=== PATIENT | male | born 1995 | race Two or more races ===

== ENCOUNTER 2023-09-19 11:23 | Emergency (ER) | payer OTHER ==
[~2023-09-19] VITALS: Ht 172.7 cm; Wt 91.0 kg
[2023-09-19 11:28] VITALS: BP 106/70; TEMP 98.3; O2SAT 100
[2023-09-19 11:29] VITALS: PULSE 74; RESP 16
[2023-09-19 13:33] LABS: HEMATOCRIT 50.8 % (42.0-52.0); HEMOGLOBIN 16.9 g/dL (14.0-18.0); MEAN CORPUSCULAR HEMOGLOBIN 28.2 pg (28.0-32.0); MEAN CORPUSCULAR HGB CONC 33.2 g/dL (31.0-37.0); MEAN CORPUSCULAR VOLUME 84.9 fL (80.0-94.0); PLATELET 221 x1000/uL (130-400); RED BLOOD CELL COUNT 5.98 mill/uL (4.7-6.1); RED CELL DISTRIBUTION WIDTH 13.1 % (11.6-14.6); WHITE BLOOD COUNT 7.7 x1000/uL (4.5-11.0)
[2023-09-19 13:40] LABS: CHLORIDE 104 mEq/L (98-107); SODIUM 139 mEq/L (136-145)
[2023-09-19 13:41] LABS: CARBON DIOXIDE 29 mEq/L (21-32)
[2023-09-19 13:42] LABS: CALCIUM 10.2 mg/dL (8.7-10.4)
[2023-09-19 13:46] LABS: GLUCOSE 86 mg/dL (70-105)
[2023-09-19 13:47] LABS: UREA NITROGEN BLOOD 19 mg/dL (9-23)
[2023-09-19 13:48] LABS: ALANINE AMINOTRANSFERASE 36 IU/L (10-49); ALBUMIN 5.4 g/dL (3.2-4.8); ASPARTATE AMINOTRANSFERASE 35 IU/L (<34)
[2023-09-19 13:49] LABS: BILIRUBIN TOTAL 0.6 mg/dL (0.1-1.0); PROTEIN TOTAL 7.7 g/dL (6.0-8.3)
== END 2023-09-19 15:15 | disposition home or self-care (01) ==
LOC: ER 12:44
DX: M79.18 Myalgia, other site (principal); Z98.890 Other specified postprocedural states; Z88.5 Allergy status to narcotic agent; Z88.6 Allergy status to analgesic agent
CPT/HCPCS: 36415; 80053; 85027; 93970; 99284